=== PATIENT | female | born 1970 | race African-American/Black ===

== ENCOUNTER 2019-09-03 22:55 | Inpatient (IN) | payer OTHER ==
[~2019-09-03] VITALS: Ht 170.2 cm; Wt 69.6 kg
[2019-09-04 00:23] LABS: ANION GAP 13 mmol/L (8-16); CALCIUM, TOTAL 8.9 mg/dL (8.8-10.5); CARBON DIOXIDE 26 mmol/L (22-29); CHLORIDE 102 mmol/L (98-107); CREATININE 0.58 mg/dL (0.60-1.30); GLOMERULAR FILTR. RATE CALC > 60 mL/min (>60); GLUCOSE,RANDOM 97 mg/dL (70-110); SODIUM SERUM 141 mmol/L (136-145); UREA NITROGEN, BLOOD 9 mg/dL (7-18)
[2019-09-04 00:29] LABS: ALANINE AMINOTRANSFERASE 57 U/L (12-78); ALBUMIN 4.1 g/dL (3.4-5.0); ALKALINE PHOSPHATASE 133 U/L (46-116); ASPARTATE AMINOTRANSFERASE 61 U/L (15-37); BILIRUBIN,TOTAL 0.1 mg/dL (0.1-1.0); TOTAL PROTEIN, SERUM 7.3 g/dL (6.4-8.2)
[2019-09-04 00:46] LABS: AMPHET/METH SCREEN,URINE POSITIVE (NEGATIVE); BARBITURATE SCREEN, URINE NEGATIVE (NEGATIVE); BENZODIAZEPINES SCREEN,URINE NEGATIVE (NEGATIVE); CANNABINOID SCREEN,URINE POSITIVE (NEGATIVE); COCAINE SCREEN,URINE NEGATIVE (NEGATIVE); METHADONE SCREEN, URINE NEGATIVE (NEGATIVE); OPIATE SCREEN,URINE NEGATIVE (NEGATIVE)
[2019-09-04 00:47] LABS: PHENCYCLIDINE SCREEN,URINE NEGATIVE (NEGATIVE)
[2019-09-04 00:50] LABS: EOSINOPHILS % (AUTO) 2.3 % (1.0-6.0); HEMATOCRIT 33.4 % (36-46); HEMOGLOBIN 11.1 g/dL (12.0-16.0); LYMPHOCYTES # (AUTO) 3.1 K/uL (1.0-4.8); LYMPHOCYTES % (AUTO) 29.5 % (22.0-44.0); MEAN CORPUSCULAR HEMOGLOBIN 28.1 pg (26.0-34.0); MEAN CORPUSCULAR HGB CONC 33.1 G/dL (31.0-37.0); MEAN CORPUSCULAR VOLUME 85 fL (80-100); MONOCYTES # (AUTO) 0.6 K/uL (0.1-1.0); MONOCYTES % (AUTO) 5.8 % (2.0-9.0); NEUTROPHILS # (AUTO) 6.4 K/uL (1.8-7.7); NEUTROPHILS % (AUTO) 61.4 % (40.0-70.0); RED BLOOD CELL COUNT(AUTO) 3.93 MIL/uL (4.00-5.20); RED CELL DISTRIBUTION WIDTH 16.5 % (11.5-14.5)
[2019-09-04 01:06] LABS: SALICYLATE 1.5 mg/dL (2.8-20.0)
[2019-09-04 01:18] LABS: HCG,QUANTITATIVE < 1 mIU/mL (0-6); PLATELET COUNT (AUTO) 271 K/uL (150-450)
[2019-09-04 01:19] LABS: ACETAMINOPHEN < 2 mcg/mL (10-30)
[2019-09-04] MEDS ORDERED: LORazepam 2 MG TABLET PO PRN (02:30)
[2019-09-04] MEDS ORDERED: HALOPERIDOL 5 MG TABLET PO PRN (02:30)
[2019-09-04 06:28] LABS: APPEARANCE,URINE CLOUDY (CLEAR); BILIRUBIN,URINE NEGATIVE (NEGATIVE); GLUCOSE, URINE (UA) NEGATIVE (NEGATIVE); KETONES,URINE NEGATIVE (NEGATIVE); LEUKOCYTE ESTERASE ,URINE NEGATIVE (NEGATIVE); NITRATE,URINE NEGATIVE (NEGATIVE); OCCULT BLOOD,URINE NEGATIVE (NEGATIVE); PH,URINE 5.5 (5.0-8.0); PROTEIN,URINE NEGATIVE (NEGATIVE); UROBILINOGEN,URINE 0.2 mg/dL (<=1.0)
[2019-09-04 08:57] VITALS: BP 125/84
[2019-09-04] MEDS: ESCITALOPRAM OXALATE 10 MG TABLET PO SCH (10:45)
[2019-09-04 17:47] VITALS: BP 110/66
[2019-09-04] MEDS ORDERED: ACETAMINOPHEN 325 MG TABLET PO PRN (19:30)
[2019-09-04] MEDS ORDERED: IBUPROFEN 600 MG TABLET PO PRN (19:30)
[2019-09-05] MEDS ORDERED: INFLUENZA VIRUS VACCINE QVS 2019-20 (3YR+)/PF 60 MCG/0.5 ML SYRINGE IM ONE (04:15)
[2019-09-05 06:28] VITALS: BP 112/71
[2019-09-05 08:15] VITALS: BP 121/78
[2019-09-05] MEDS: ESCITALOPRAM OXALATE 10 MG TABLET PO SCH ×2 (08:29→09:00)
[2019-09-05 16:04] VITALS: BP 122/83
[2019-09-06 07:15] VITALS: BP 126/90
[2019-09-06 08:05] VITALS: BP 110/79
[2019-09-06] MEDS: ESCITALOPRAM OXALATE 10 MG TABLET PO SCH (08:41)
[2019-09-06] MEDS ORDERED: HALOPERIDOL LACTATE 5 MG/ML VIAL ONE (12:25)
[2019-09-06] MEDS ORDERED: DiphenhydrAMINE HCL 50 MG/ML VIAL ONE (12:25)
[2019-09-06] MEDS ORDERED: LORazepam 2 MG/ML VIAL ONE (12:25)
[2019-09-06] MEDS ORDERED: DiphenhydrAMINE HCL 50 MG/ML VIAL IM ONE (12:30)
[2019-09-06] MEDS ORDERED: HALOPERIDOL LACTATE 5 MG/ML VIAL IM ONE (12:30)
[2019-09-06] MEDS ORDERED: LORazepam 2 MG/ML VIAL IM ONE (12:30)
[2019-09-06 16:00] VITALS: BP 108/72
[2019-09-07 06:32] VITALS: BP 115/74
[2019-09-07] MEDS: ESCITALOPRAM OXALATE 10 MG TABLET PO SCH (08:13)
[2019-09-07 08:35] VITALS: BP 117/74
[2019-09-07 16:06] VITALS: BP 108/60
[2019-09-08 06:11] VITALS: BP 116/89
[2019-09-08 08:20] VITALS: BP 129/64
[2019-09-08] MEDS: ESCITALOPRAM OXALATE 10 MG TABLET PO SCH (08:27)
[2019-09-08 16:06] VITALS: BP 121/77
[2019-09-08] MEDS: ZOLPIDEM TARTRATE 10 MG TABLET PO PRN (23:08)
[2019-09-09 00:56] VITALS: BP 119/82
[2019-09-09 08:04] VITALS: BP 133/86
[2019-09-09] MEDS: ESCITALOPRAM OXALATE 10 MG TABLET PO SCH (08:57)
[2019-09-09 15:54] VITALS: BP 123/83
[2019-09-09 16:26] VITALS: BP 123/83
[2019-09-09] MEDS: ZOLPIDEM TARTRATE 10 MG TABLET PO PRN (20:53)
[2019-09-10 06:47] VITALS: BP 114/78
[2019-09-10 08:13] VITALS: BP 120/70
[2019-09-10] MEDS: ESCITALOPRAM OXALATE 10 MG TABLET PO SCH (08:30)
[2019-09-10 08:42] LABS: ALANINE AMINOTRANSFERASE 33 U/L (12-78); ALBUMIN 3.8 g/dL (3.4-5.0); ALKALINE PHOSPHATASE 91 U/L (46-116); ANION GAP 6 mmol/L (8-16); ASPARTATE AMINOTRANSFERASE 14 U/L (15-37); BILIRUBIN,TOTAL 0.3 mg/dL (0.1-1.0); CALCIUM, TOTAL 8.4 mg/dL (8.8-10.5); CARBON DIOXIDE 31 mmol/L (22-29); CHLORIDE 102 mmol/L (98-107); CHOL/HDL RATIO 3.5 (3.9-5.7); CHOLESTEROL 188 mg/dL (131-200); CREATINE KINASE, TOTAL ONLY 52 U/L (26-192); GLOMERULAR FILTR. RATE CALC > 60 mL/min (>60); GLUCOSE,RANDOM 87 mg/dL (70-110); HDL CHOLESTEROL 54 mg/dL (40-60); LDL CHOL (CALC.) 123 mg/dL (0-130); SODIUM SERUM 139 mmol/L (136-145); TOTAL PROTEIN, SERUM 7.4 g/dL (6.4-8.2); TRIGLYCERIDES 53 mg/dL (15-150); UREA NITROGEN, BLOOD 13 mg/dL (7-18)
[2019-09-10 16:02] VITALS: BP 127/86
[2019-09-10] MEDS: ZOLPIDEM TARTRATE 10 MG TABLET PO PRN (21:32)
[2019-09-11 06:51] VITALS: BP 123/82
[2019-09-11 08:12] VITALS: BP 116/74
[2019-09-11] MEDS: ESCITALOPRAM OXALATE 10 MG TABLET PO SCH (08:21)
[2019-09-11] MEDS ORDERED: ESCI10TA PO (08:23)
== END 2019-09-11 11:30 | disposition home or self-care (01) | DRG 885 ==
LOC: EMS 22:55 → B2X 09-04 07:22
PROVIDERS: ADMIT Psychiatry & Neurology Psychiatry; ATTEND Psychiatry & Neurology Psychiatry
DX: F33.2 Major depressive disorder, recurrent severe without psychotic features (principal); R45.851 Suicidal ideations; D64.9 Anemia, unspecified; F12.90 Cannabis use, unspecified, uncomplicated; M54.30 Sciatica, unspecified side; Z59.0 Homelessness; Z91.19 Patient's noncompliance with other medical treatment and regimen
CPT/HCPCS: 80074; 83735; 96372; G0480; G0481; J1200; J1630; J2060